=== PATIENT | male | born 1990 | race Caucasian/White ===

== ENCOUNTER 2023-01-22 16:56 | Emergency (ER) | payer BC ==
[~2023-01-22] VITALS: Ht 188 cm; Wt 113.6 kg
[~2023-01-22 16:56] MED LIST: NO HOME MEDICATIONS; TORADOL10 MG PO
[2023-01-22 16:59] VITALS: TEMP 98.9
[2023-01-22] MEDS ORDERED: AMOXICILLIN 8751 TAB PO (17:39)
[2023-01-22 18:44] VITALS: BP 142/90; PULSE 77
== END 2023-01-22 18:46 | disposition home or self-care (01) ==
LOC: COL.ER 16:56
DX: S51.052A Open bite, left elbow, initial encounter (principal); Z23 Encounter for immunization; Z29.14 Encounter for prophylactic rabies immune globulin; W54.0XXA Bitten by dog, initial encounter; Y92.410 Unspecified street and highway as the place of occurrence of the external cause